=== PATIENT | male | born 1980 | race Caucasian/White ===

== ENCOUNTER 2017-05-21 22:36 | Emergency (ER) | payer OTHER ==
[~2017-05-21] VITALS: Ht 172.7 cm; Wt 83.9 kg
[~2017-05-21 22:36] MED LIST: ALPRAZOLAM 0.0.25 M1 PO; DOXYCYCLINE 10100 MG PO; FLONASE 0.05%50 MCG NASAL; PROTONIX40 M1 PO
[2017-05-22] MEDS ORDERED: ZYRTEC10 M5 PO (00:11)
[2017-05-22 00:24] VITALS: BP 134/93
== END 2017-05-22 00:25 | disposition home or self-care (01) ==
LOC: ER 22:36
DX: R04.0 Epistaxis (principal); F17.210 Nicotine dependence, cigarettes, uncomplicated; Z91.013 Allergy to seafood